=== PATIENT | female | born 1970 | race American Indian/Alaskan Native ===

== ENCOUNTER 2021-12-01 08:32 | Outpatient (CLI) | payer OTHER ==
[2021-12-01] MEDS ORDERED: LIDOCAINE (4%) 40 MG/ML TOPICAL SOLN 50 ML BOTTLE TP ONE (08:47)
== END 2021-12-01 08:33 | disposition home or self-care (01) ==
LOC: WOUND 08:32
PROVIDERS: ATTEND Surgery
DX: T81.31XA Disruption of external operation (surgical) wound, not elsewhere classified, initial encounter (principal); S21.002A Unspecified open wound of left breast, initial encounter; S21.001A Unspecified open wound of right breast, initial encounter; S21.209A Unspecified open wound of unspecified back wall of thorax without penetration into thoracic cavity, initial encounter; S31.103A Unspecified open wound of abdominal wall, right lower quadrant without penetration into peritoneal cavity, initial encounter; I10 Essential (primary) hypertension; F12.90 Cannabis use, unspecified, uncomplicated; Z98.890 Other specified postprocedural states; Z79.899 Other long term (current) drug therapy; X58.XXXA Exposure to other specified factors, initial encounter; Y83.8 Other surgical procedures as the cause of abnormal reaction of the patient, or of later complication, without mention of misadventure at the time of the procedure; Y92.238 Other place in hospital as the place of occurrence of the external cause; Y93.89 Activity, other specified; Y92.89 Other specified places as the place of occurrence of the external cause; Y99.8 Other external cause status
CPT/HCPCS: 11042; 11045; G0463; 99204

== ENCOUNTER 2021-12-08 08:51 | Outpatient (CLI) | payer OTHER ==
[2021-12-08] MEDS ORDERED: LIDOCAINE (4%) 40 MG/ML TOPICAL SOLN 50 ML BOTTLE TP ONE (08:55)
[2021-12-08] MEDS ORDERED: SILVER NITRATE APPLICATOR 1 EA TP ONE (10:06)
== END 2021-12-08 08:52 | disposition home or self-care (01) ==
LOC: WOUND 08:51
PROVIDERS: ATTEND Surgery
DX: T81.31XD Disruption of external operation (surgical) wound, not elsewhere classified, subsequent encounter (principal); S21.002D Unspecified open wound of left breast, subsequent encounter; S21.001D Unspecified open wound of right breast, subsequent encounter; S21.90XD Unspecified open wound of unspecified part of thorax, subsequent encounter; S31.103D Unspecified open wound of abdominal wall, right lower quadrant without penetration into peritoneal cavity, subsequent encounter; I10 Essential (primary) hypertension; F12.90 Cannabis use, unspecified, uncomplicated; Z98.890 Other specified postprocedural states; Z79.899 Other long term (current) drug therapy; X58.XXXD Exposure to other specified factors, subsequent encounter; Y83.8 Other surgical procedures as the cause of abnormal reaction of the patient, or of later complication, without mention of misadventure at the time of the procedure

== ENCOUNTER 2021-12-11 14:25 | Outpatient (CLI) | payer OTHER | END 2021-12-11 14:26 | disposition home or self-care (01) | LOC: WOUND 14:25 | PROVIDERS: ATTEND Surgery | DX: T81.31XD Disruption of external operation (surgical) wound, not elsewhere classified, subsequent encounter (principal); S21.002D Unspecified open wound of left breast, subsequent encounter; S21.001D Unspecified open wound of right breast, subsequent encounter; S21.90XD Unspecified open wound of unspecified part of thorax, subsequent encounter; S31.103D Unspecified open wound of abdominal wall, right lower quadrant without penetration into peritoneal cavity, subsequent encounter; I10 Essential (primary) hypertension; F12.90 Cannabis use, unspecified, uncomplicated; Z98.890 Other specified postprocedural states; Z79.899 Other long term (current) drug therapy; X58.XXXD Exposure to other specified factors, subsequent encounter; Y83.8 Other surgical procedures as the cause of abnormal reaction of the patient, or of later complication, without mention of misadventure at the time of the procedure | CPT/HCPCS: 99214; G0463 ==

== ENCOUNTER 2021-12-15 09:00 | Outpatient (CLI) | payer OTHER ==
[2021-12-15] MEDS ORDERED: LIDOCAINE (4%) 40 MG/ML TOPICAL SOLN 50 ML BOTTLE TP ONE (09:38)
== END 2021-12-15 09:01 | disposition home or self-care (01) ==
LOC: WOUND 09:00
PROVIDERS: ATTEND Surgery
DX: T81.31XD Disruption of external operation (surgical) wound, not elsewhere classified, subsequent encounter (principal); S21.002D Unspecified open wound of left breast, subsequent encounter; S21.001D Unspecified open wound of right breast, subsequent encounter; S21.90XD Unspecified open wound of unspecified part of thorax, subsequent encounter; S31.103D Unspecified open wound of abdominal wall, right lower quadrant without penetration into peritoneal cavity, subsequent encounter; I10 Essential (primary) hypertension; F12.90 Cannabis use, unspecified, uncomplicated; Z79.899 Other long term (current) drug therapy; Z98.890 Other specified postprocedural states; X58.XXXD Exposure to other specified factors, subsequent encounter; Y83.8 Other surgical procedures as the cause of abnormal reaction of the patient, or of later complication, without mention of misadventure at the time of the procedure

== ENCOUNTER 2021-12-15 13:11 | Outpatient (CLI) | payer OTHER ==
--- NOTE | 2021-12-15 13:48 | XRay Report ---
CHEST 2 VIEWS INDICATION: HBO CLEARANCE BREAST WOUND. COMPARISON: none FINDINGS: Support devices: None. Heart: Within normal limits. Lungs/pleura: No acute air space or interstitial disease. No pneumothorax. Additional findings: None. IMPRESSION: No acute findings. Signer Name: Sharath Mireles Jr, MD Signed: 12/15/2021 1:44 PM Workstation Name: [id number]
== END 2021-12-15 13:12 | disposition home or self-care (01) ==
LOC: XRAY 13:11
PROVIDERS: ATTEND Surgery
DX: S21.009A Unspecified open wound of unspecified breast, initial encounter (principal); X58.XXXA Exposure to other specified factors, initial encounter; Y93.89 Activity, other specified; Y92.89 Other specified places as the place of occurrence of the external cause; Y99.8 Other external cause status
CPT/HCPCS: 71046

== ENCOUNTER 2021-12-18 13:52 | Outpatient (CLI) | payer OTHER ==
[2021-12-18] MEDS ORDERED: SILVER NITRATE APPLICATOR 1 EA TP ONE (14:32)
[2021-12-18] MEDS ORDERED: LIDOCAINE (4%) 40 MG/ML TOPICAL SOLN 50 ML BOTTLE TP ONE (14:32)
== END 2021-12-18 13:53 | disposition home or self-care (01) ==
LOC: WOUND 13:52
PROVIDERS: ATTEND Surgery
DX: T86.828 Other complications of skin graft (allograft) (autograft) (principal); T81.31XD Disruption of external operation (surgical) wound, not elsewhere classified, subsequent encounter; S21.002D Unspecified open wound of left breast, subsequent encounter; S21.001D Unspecified open wound of right breast, subsequent encounter; S21.90XD Unspecified open wound of unspecified part of thorax, subsequent encounter; S31.103D Unspecified open wound of abdominal wall, right lower quadrant without penetration into peritoneal cavity, subsequent encounter; I10 Essential (primary) hypertension; F12.90 Cannabis use, unspecified, uncomplicated; Z79.899 Other long term (current) drug therapy; Z98.890 Other specified postprocedural states; X58.XXXD Exposure to other specified factors, subsequent encounter; Y83.8 Other surgical procedures as the cause of abnormal reaction of the patient, or of later complication, without mention of misadventure at the time of the procedure; Y83.2 Surgical operation with anastomosis, bypass or graft as the cause of abnormal reaction of the patient, or of later complication, without mention of misadventure at the time of the procedure

== ENCOUNTER 2021-12-22 08:42 | Outpatient (CLI) | payer OTHER | END 2021-12-22 08:43 | disposition home or self-care (01) | LOC: WOUND 08:42 | PROVIDERS: ATTEND Surgery | DX: T86.828 Other complications of skin graft (allograft) (autograft) (principal); T81.31XD Disruption of external operation (surgical) wound, not elsewhere classified, subsequent encounter; S21.002D Unspecified open wound of left breast, subsequent encounter; S21.001D Unspecified open wound of right breast, subsequent encounter; S21.90XD Unspecified open wound of unspecified part of thorax, subsequent encounter; S31.103D Unspecified open wound of abdominal wall, right lower quadrant without penetration into peritoneal cavity, subsequent encounter; I10 Essential (primary) hypertension; F12.90 Cannabis use, unspecified, uncomplicated; Z79.899 Other long term (current) drug therapy; Z98.890 Other specified postprocedural states; X58.XXXD Exposure to other specified factors, subsequent encounter; Y83.8 Other surgical procedures as the cause of abnormal reaction of the patient, or of later complication, without mention of misadventure at the time of the procedure; Y83.2 Surgical operation with anastomosis, bypass or graft as the cause of abnormal reaction of the patient, or of later complication, without mention of misadventure at the time of the procedure | CPT/HCPCS: 99214; G0463 ==

== ENCOUNTER 2021-12-29 08:31 | Outpatient (CLI) | payer OTHER ==
[2021-12-29] MEDS ORDERED: LIDOCAINE (4%) 40 MG/ML TOPICAL SOLN 50 ML BOTTLE TP SCH (09:00)
== END 2021-12-29 08:32 | disposition home or self-care (01) ==
LOC: WOUND 08:31
PROVIDERS: ATTEND Surgery
DX: T86.828 Other complications of skin graft (allograft) (autograft) (principal); T81.31XD Disruption of external operation (surgical) wound, not elsewhere classified, subsequent encounter; S21.002D Unspecified open wound of left breast, subsequent encounter; S21.001D Unspecified open wound of right breast, subsequent encounter; S21.90XD Unspecified open wound of unspecified part of thorax, subsequent encounter; S31.103D Unspecified open wound of abdominal wall, right lower quadrant without penetration into peritoneal cavity, subsequent encounter; I10 Essential (primary) hypertension; F12.90 Cannabis use, unspecified, uncomplicated; Z79.899 Other long term (current) drug therapy; Z98.890 Other specified postprocedural states; X58.XXXD Exposure to other specified factors, subsequent encounter; Y83.8 Other surgical procedures as the cause of abnormal reaction of the patient, or of later complication, without mention of misadventure at the time of the procedure; Y83.2 Surgical operation with anastomosis, bypass or graft as the cause of abnormal reaction of the patient, or of later complication, without mention of misadventure at the time of the procedure

== ENCOUNTER 2022-01-01 08:54 | Outpatient (CLI) | payer OTHER | END 2022-01-01 08:55 | disposition home or self-care (01) | LOC: WOUND 08:54 | PROVIDERS: ATTEND Surgery | DX: T86.828 Other complications of skin graft (allograft) (autograft) (principal); T81.31XD Disruption of external operation (surgical) wound, not elsewhere classified, subsequent encounter; S21.002D Unspecified open wound of left breast, subsequent encounter; S21.001D Unspecified open wound of right breast, subsequent encounter; S21.90XD Unspecified open wound of unspecified part of thorax, subsequent encounter; S31.103D Unspecified open wound of abdominal wall, right lower quadrant without penetration into peritoneal cavity, subsequent encounter; I10 Essential (primary) hypertension; F12.90 Cannabis use, unspecified, uncomplicated; Z79.899 Other long term (current) drug therapy; Z98.890 Other specified postprocedural states; X58.XXXD Exposure to other specified factors, subsequent encounter; Y83.8 Other surgical procedures as the cause of abnormal reaction of the patient, or of later complication, without mention of misadventure at the time of the procedure; Y83.2 Surgical operation with anastomosis, bypass or graft as the cause of abnormal reaction of the patient, or of later complication, without mention of misadventure at the time of the procedure | CPT/HCPCS: 97605; G0277; G0463; 99183; 99213 ==

== ENCOUNTER 2022-01-03 09:07 | Outpatient (CLI) | payer OTHER | END 2022-01-03 09:08 | disposition home or self-care (01) | LOC: WOUND 09:07 | PROVIDERS: ATTEND Surgery | DX: T86.828 Other complications of skin graft (allograft) (autograft) (principal); T81.31XD Disruption of external operation (surgical) wound, not elsewhere classified, subsequent encounter; S21.002D Unspecified open wound of left breast, subsequent encounter; S21.001D Unspecified open wound of right breast, subsequent encounter; S21.90XD Unspecified open wound of unspecified part of thorax, subsequent encounter; S31.103D Unspecified open wound of abdominal wall, right lower quadrant without penetration into peritoneal cavity, subsequent encounter; I10 Essential (primary) hypertension; F12.90 Cannabis use, unspecified, uncomplicated; Z79.899 Other long term (current) drug therapy; Z98.890 Other specified postprocedural states; X58.XXXD Exposure to other specified factors, subsequent encounter; Y83.8 Other surgical procedures as the cause of abnormal reaction of the patient, or of later complication, without mention of misadventure at the time of the procedure; Y83.2 Surgical operation with anastomosis, bypass or graft as the cause of abnormal reaction of the patient, or of later complication, without mention of misadventure at the time of the procedure | CPT/HCPCS: 97605; G0277; G0463; 99183; 99214 ==

== ENCOUNTER 2022-01-04 09:04 | Outpatient (CLI) | payer OTHER | END 2022-01-04 09:05 | disposition home or self-care (01) | LOC: WOUND 09:04 | PROVIDERS: ATTEND Internal Medicine | DX: T86.828 Other complications of skin graft (allograft) (autograft) (principal); T81.31XD Disruption of external operation (surgical) wound, not elsewhere classified, subsequent encounter; S21.002D Unspecified open wound of left breast, subsequent encounter; S21.001D Unspecified open wound of right breast, subsequent encounter; S21.90XD Unspecified open wound of unspecified part of thorax, subsequent encounter; S31.103D Unspecified open wound of abdominal wall, right lower quadrant without penetration into peritoneal cavity, subsequent encounter; I10 Essential (primary) hypertension; F12.90 Cannabis use, unspecified, uncomplicated; Z79.899 Other long term (current) drug therapy; Z98.890 Other specified postprocedural states; X58.XXXD Exposure to other specified factors, subsequent encounter; Y83.8 Other surgical procedures as the cause of abnormal reaction of the patient, or of later complication, without mention of misadventure at the time of the procedure; Y83.2 Surgical operation with anastomosis, bypass or graft as the cause of abnormal reaction of the patient, or of later complication, without mention of misadventure at the time of the procedure | CPT/HCPCS: 99183; G0277 ==

== ENCOUNTER 2022-01-05 09:07 | Outpatient (CLI) | payer OTHER ==
[2022-01-05] MEDS ORDERED: LIDOCAINE (4%) 40 MG/ML TOPICAL SOLN 50 ML BOTTLE TP ONE (09:17)
== END 2022-01-05 09:08 | disposition home or self-care (01) ==
LOC: WOUND 09:07
PROVIDERS: ATTEND Surgery
DX: T86.828 Other complications of skin graft (allograft) (autograft) (principal); T81.31XD Disruption of external operation (surgical) wound, not elsewhere classified, subsequent encounter; S21.002D Unspecified open wound of left breast, subsequent encounter; S21.001D Unspecified open wound of right breast, subsequent encounter; S21.90XD Unspecified open wound of unspecified part of thorax, subsequent encounter; S31.103D Unspecified open wound of abdominal wall, right lower quadrant without penetration into peritoneal cavity, subsequent encounter; I10 Essential (primary) hypertension; F12.90 Cannabis use, unspecified, uncomplicated; Z79.899 Other long term (current) drug therapy; Z98.890 Other specified postprocedural states; X58.XXXD Exposure to other specified factors, subsequent encounter; Y83.8 Other surgical procedures as the cause of abnormal reaction of the patient, or of later complication, without mention of misadventure at the time of the procedure; Y83.2 Surgical operation with anastomosis, bypass or graft as the cause of abnormal reaction of the patient, or of later complication, without mention of misadventure at the time of the procedure
CPT/HCPCS: 11042; 11045; 97605; G0277; G0463; 99183; 99214

== ENCOUNTER 2022-01-08 08:59 | Outpatient (CLI) | payer OTHER | END 2022-01-08 09:00 | disposition home or self-care (01) | LOC: WOUND 08:59 | PROVIDERS: ATTEND Surgery | DX: T86.828 Other complications of skin graft (allograft) (autograft) (principal); T81.31XD Disruption of external operation (surgical) wound, not elsewhere classified, subsequent encounter; S21.002D Unspecified open wound of left breast, subsequent encounter; S21.001D Unspecified open wound of right breast, subsequent encounter; S21.90XD Unspecified open wound of unspecified part of thorax, subsequent encounter; S31.103D Unspecified open wound of abdominal wall, right lower quadrant without penetration into peritoneal cavity, subsequent encounter; I10 Essential (primary) hypertension; F12.90 Cannabis use, unspecified, uncomplicated; Z79.899 Other long term (current) drug therapy; Z98.890 Other specified postprocedural states; X58.XXXD Exposure to other specified factors, subsequent encounter; Y83.8 Other surgical procedures as the cause of abnormal reaction of the patient, or of later complication, without mention of misadventure at the time of the procedure; Y83.2 Surgical operation with anastomosis, bypass or graft as the cause of abnormal reaction of the patient, or of later complication, without mention of misadventure at the time of the procedure | CPT/HCPCS: 97605; G0277; G0463; 99183; 99214 ==

== ENCOUNTER 2022-01-10 09:00 | Outpatient (CLI) | payer OTHER | END 2022-01-10 09:01 | disposition home or self-care (01) | LOC: WOUND 09:00 | PROVIDERS: ATTEND Surgery | DX: T86.828 Other complications of skin graft (allograft) (autograft) (principal); T81.31XD Disruption of external operation (surgical) wound, not elsewhere classified, subsequent encounter; S21.002D Unspecified open wound of left breast, subsequent encounter; S21.001D Unspecified open wound of right breast, subsequent encounter; S21.90XD Unspecified open wound of unspecified part of thorax, subsequent encounter; S31.103D Unspecified open wound of abdominal wall, right lower quadrant without penetration into peritoneal cavity, subsequent encounter; I10 Essential (primary) hypertension; F17.290 Nicotine dependence, other tobacco product, uncomplicated; Z79.899 Other long term (current) drug therapy; Z98.890 Other specified postprocedural states; X58.XXXD Exposure to other specified factors, subsequent encounter; Y83.8 Other surgical procedures as the cause of abnormal reaction of the patient, or of later complication, without mention of misadventure at the time of the procedure; Y83.2 Surgical operation with anastomosis, bypass or graft as the cause of abnormal reaction of the patient, or of later complication, without mention of misadventure at the time of the procedure | CPT/HCPCS: 97605; G0277; G0463; 99183; 99214 ==

== ENCOUNTER 2022-01-12 09:00 | Outpatient (CLI) | payer OTHER ==
[2022-01-12] MEDS ORDERED: LIDOCAINE (4%) 40 MG/ML TOPICAL SOLN 50 ML BOTTLE TP ONE (09:09)
== END 2022-01-12 09:01 | disposition home or self-care (01) ==
LOC: WOUND 09:00
PROVIDERS: ATTEND Surgery
DX: T86.828 Other complications of skin graft (allograft) (autograft) (principal); T81.31XD Disruption of external operation (surgical) wound, not elsewhere classified, subsequent encounter; S21.002D Unspecified open wound of left breast, subsequent encounter; S21.001D Unspecified open wound of right breast, subsequent encounter; S21.90XD Unspecified open wound of unspecified part of thorax, subsequent encounter; S31.103D Unspecified open wound of abdominal wall, right lower quadrant without penetration into peritoneal cavity, subsequent encounter; I10 Essential (primary) hypertension; F12.90 Cannabis use, unspecified, uncomplicated; Z79.899 Other long term (current) drug therapy; Z98.890 Other specified postprocedural states; X58.XXXD Exposure to other specified factors, subsequent encounter; Y83.8 Other surgical procedures as the cause of abnormal reaction of the patient, or of later complication, without mention of misadventure at the time of the procedure; Y83.2 Surgical operation with anastomosis, bypass or graft as the cause of abnormal reaction of the patient, or of later complication, without mention of misadventure at the time of the procedure
CPT/HCPCS: 11042; 11045; 97605; G0277; 99183

== ENCOUNTER 2022-01-15 09:03 | Outpatient (CLI) | payer OTHER | END 2022-01-15 09:04 | disposition home or self-care (01) | LOC: WOUND 09:03 | PROVIDERS: ATTEND Surgery | DX: T86.828 Other complications of skin graft (allograft) (autograft) (principal); T81.31XD Disruption of external operation (surgical) wound, not elsewhere classified, subsequent encounter; S21.002D Unspecified open wound of left breast, subsequent encounter; S21.001D Unspecified open wound of right breast, subsequent encounter; S21.90XD Unspecified open wound of unspecified part of thorax, subsequent encounter; S31.103D Unspecified open wound of abdominal wall, right lower quadrant without penetration into peritoneal cavity, subsequent encounter; I10 Essential (primary) hypertension; F12.90 Cannabis use, unspecified, uncomplicated; Z79.899 Other long term (current) drug therapy; Z98.890 Other specified postprocedural states; X58.XXXD Exposure to other specified factors, subsequent encounter; Y83.8 Other surgical procedures as the cause of abnormal reaction of the patient, or of later complication, without mention of misadventure at the time of the procedure; Y83.2 Surgical operation with anastomosis, bypass or graft as the cause of abnormal reaction of the patient, or of later complication, without mention of misadventure at the time of the procedure | CPT/HCPCS: 97605; G0277; G0463; 99183; 99214 ==

== ENCOUNTER 2022-01-17 09:04 | Outpatient (CLI) | payer OTHER | END 2022-01-17 09:05 | disposition home or self-care (01) | LOC: WOUND 09:04 | PROVIDERS: ATTEND Surgery | DX: T86.828 Other complications of skin graft (allograft) (autograft) (principal); T81.31XD Disruption of external operation (surgical) wound, not elsewhere classified, subsequent encounter; S21.002D Unspecified open wound of left breast, subsequent encounter; S21.001D Unspecified open wound of right breast, subsequent encounter; S21.90XD Unspecified open wound of unspecified part of thorax, subsequent encounter; S31.103D Unspecified open wound of abdominal wall, right lower quadrant without penetration into peritoneal cavity, subsequent encounter; I10 Essential (primary) hypertension; F12.90 Cannabis use, unspecified, uncomplicated; Z79.899 Other long term (current) drug therapy; Z98.890 Other specified postprocedural states; X58.XXXD Exposure to other specified factors, subsequent encounter; Y83.8 Other surgical procedures as the cause of abnormal reaction of the patient, or of later complication, without mention of misadventure at the time of the procedure; Y83.2 Surgical operation with anastomosis, bypass or graft as the cause of abnormal reaction of the patient, or of later complication, without mention of misadventure at the time of the procedure | CPT/HCPCS: 97605; G0277; G0463; 97606; 99183; 99214 ==

== ENCOUNTER 2022-01-18 14:59 | Outpatient (CLI) | payer OTHER | END 2022-01-18 15:00 | disposition home or self-care (01) | LOC: WOUND 14:59 | PROVIDERS: ATTEND Internal Medicine | DX: T86.828 Other complications of skin graft (allograft) (autograft) (principal); T81.31XD Disruption of external operation (surgical) wound, not elsewhere classified, subsequent encounter; S21.002D Unspecified open wound of left breast, subsequent encounter; S21.001D Unspecified open wound of right breast, subsequent encounter; S21.90XD Unspecified open wound of unspecified part of thorax, subsequent encounter; S31.103D Unspecified open wound of abdominal wall, right lower quadrant without penetration into peritoneal cavity, subsequent encounter; I10 Essential (primary) hypertension; F12.90 Cannabis use, unspecified, uncomplicated; Z79.899 Other long term (current) drug therapy; Z98.890 Other specified postprocedural states; X58.XXXD Exposure to other specified factors, subsequent encounter; Y83.8 Other surgical procedures as the cause of abnormal reaction of the patient, or of later complication, without mention of misadventure at the time of the procedure; Y83.2 Surgical operation with anastomosis, bypass or graft as the cause of abnormal reaction of the patient, or of later complication, without mention of misadventure at the time of the procedure | CPT/HCPCS: 99183; G0277 ==

== ENCOUNTER 2022-01-19 09:11 | Outpatient (CLI) | payer OTHER ==
[2022-01-19] MEDS ORDERED: LIDOCAINE (4%) 40 MG/ML TOPICAL SOLN 50 ML BOTTLE TP ONE (09:37)
== END 2022-01-19 09:12 | disposition home or self-care (01) ==
LOC: WOUND 09:11
PROVIDERS: ATTEND Surgery
DX: T86.828 Other complications of skin graft (allograft) (autograft) (principal); T81.31XD Disruption of external operation (surgical) wound, not elsewhere classified, subsequent encounter; S21.002D Unspecified open wound of left breast, subsequent encounter; S21.001D Unspecified open wound of right breast, subsequent encounter; S21.90XD Unspecified open wound of unspecified part of thorax, subsequent encounter; S31.103D Unspecified open wound of abdominal wall, right lower quadrant without penetration into peritoneal cavity, subsequent encounter; I10 Essential (primary) hypertension; F12.90 Cannabis use, unspecified, uncomplicated; Z79.899 Other long term (current) drug therapy; Z98.890 Other specified postprocedural states; X58.XXXD Exposure to other specified factors, subsequent encounter; Y83.8 Other surgical procedures as the cause of abnormal reaction of the patient, or of later complication, without mention of misadventure at the time of the procedure; Y83.2 Surgical operation with anastomosis, bypass or graft as the cause of abnormal reaction of the patient, or of later complication, without mention of misadventure at the time of the procedure
CPT/HCPCS: 15271; 97605

== ENCOUNTER 2022-01-26 08:53 | Outpatient (CLI) | payer OTHER ==
[2022-01-26] MEDS ORDERED: LIDOCAINE (4%) 40 MG/ML TOPICAL SOLN 50 ML BOTTLE TP SCH (11:00)
== END 2022-01-26 08:54 | disposition home or self-care (01) ==
LOC: WOUND 08:53
PROVIDERS: ATTEND Surgery
DX: T86.828 Other complications of skin graft (allograft) (autograft) (principal); T81.31XD Disruption of external operation (surgical) wound, not elsewhere classified, subsequent encounter; S21.002D Unspecified open wound of left breast, subsequent encounter; S21.001D Unspecified open wound of right breast, subsequent encounter; S21.90XD Unspecified open wound of unspecified part of thorax, subsequent encounter; S31.103D Unspecified open wound of abdominal wall, right lower quadrant without penetration into peritoneal cavity, subsequent encounter; I10 Essential (primary) hypertension; F12.90 Cannabis use, unspecified, uncomplicated; Z79.899 Other long term (current) drug therapy; Z98.890 Other specified postprocedural states; X58.XXXD Exposure to other specified factors, subsequent encounter; Y83.8 Other surgical procedures as the cause of abnormal reaction of the patient, or of later complication, without mention of misadventure at the time of the procedure; Y83.2 Surgical operation with anastomosis, bypass or graft as the cause of abnormal reaction of the patient, or of later complication, without mention of misadventure at the time of the procedure
CPT/HCPCS: 15271

== ENCOUNTER 2022-01-29 16:08 | Outpatient (CLI) | payer OTHER | END 2022-01-29 16:09 | disposition home or self-care (01) | LOC: WOUND 16:08 | PROVIDERS: ATTEND Surgery | DX: T86.828 Other complications of skin graft (allograft) (autograft) (principal); T81.31XD Disruption of external operation (surgical) wound, not elsewhere classified, subsequent encounter; S21.002D Unspecified open wound of left breast, subsequent encounter; S21.001D Unspecified open wound of right breast, subsequent encounter; S21.90XD Unspecified open wound of unspecified part of thorax, subsequent encounter; S31.103D Unspecified open wound of abdominal wall, right lower quadrant without penetration into peritoneal cavity, subsequent encounter; I10 Essential (primary) hypertension; F12.90 Cannabis use, unspecified, uncomplicated; Z79.899 Other long term (current) drug therapy; Z98.890 Other specified postprocedural states; X58.XXXD Exposure to other specified factors, subsequent encounter; Y83.8 Other surgical procedures as the cause of abnormal reaction of the patient, or of later complication, without mention of misadventure at the time of the procedure; Y83.2 Surgical operation with anastomosis, bypass or graft as the cause of abnormal reaction of the patient, or of later complication, without mention of misadventure at the time of the procedure | CPT/HCPCS: 99183; G0277 ==

== ENCOUNTER 2022-02-01 09:00 | Outpatient (CLI) | payer OTHER | END 2022-02-01 16:30 | disposition home or self-care (01) | LOC: WOUND 09:00 | PROVIDERS: ATTEND Internal Medicine | DX: T86.828 Other complications of skin graft (allograft) (autograft) (principal); T81.31XD Disruption of external operation (surgical) wound, not elsewhere classified, subsequent encounter; S21.001D Unspecified open wound of right breast, subsequent encounter; S21.002D Unspecified open wound of left breast, subsequent encounter; S21.90XD Unspecified open wound of unspecified part of thorax, subsequent encounter; S31.103D Unspecified open wound of abdominal wall, right lower quadrant without penetration into peritoneal cavity, subsequent encounter; I10 Essential (primary) hypertension; F12.90 Cannabis use, unspecified, uncomplicated; Z79.899 Other long term (current) drug therapy; Z98.890 Other specified postprocedural states; X58.XXXD Exposure to other specified factors, subsequent encounter; Y83.8 Other surgical procedures as the cause of abnormal reaction of the patient, or of later complication, without mention of misadventure at the time of the procedure; Y83.2 Surgical operation with anastomosis, bypass or graft as the cause of abnormal reaction of the patient, or of later complication, without mention of misadventure at the time of the procedure | CPT/HCPCS: 99183; G0277 ==

== ENCOUNTER 2022-02-02 15:50 | Outpatient (CLI) | payer OTHER | END 2022-02-02 15:51 | disposition home or self-care (01) | LOC: WOUND 15:50 | PROVIDERS: ATTEND Surgery | DX: T86.828 Other complications of skin graft (allograft) (autograft) (principal); T81.31XD Disruption of external operation (surgical) wound, not elsewhere classified, subsequent encounter; S21.002D Unspecified open wound of left breast, subsequent encounter; S21.001D Unspecified open wound of right breast, subsequent encounter; S21.90XD Unspecified open wound of unspecified part of thorax, subsequent encounter; S31.103D Unspecified open wound of abdominal wall, right lower quadrant without penetration into peritoneal cavity, subsequent encounter; I10 Essential (primary) hypertension; F12.90 Cannabis use, unspecified, uncomplicated; Z79.899 Other long term (current) drug therapy; Z98.890 Other specified postprocedural states; X58.XXXD Exposure to other specified factors, subsequent encounter; Y83.8 Other surgical procedures as the cause of abnormal reaction of the patient, or of later complication, without mention of misadventure at the time of the procedure; Y83.2 Surgical operation with anastomosis, bypass or graft as the cause of abnormal reaction of the patient, or of later complication, without mention of misadventure at the time of the procedure | CPT/HCPCS: 15271 ==

== ENCOUNTER 2022-02-06 15:43 | Outpatient (CLI) | payer OTHER | END 2022-02-06 15:44 | disposition home or self-care (01) | LOC: WOUND 15:43 | PROVIDERS: ATTEND Internal Medicine | DX: T86.828 Other complications of skin graft (allograft) (autograft) (principal); T81.31XD Disruption of external operation (surgical) wound, not elsewhere classified, subsequent encounter; S21.002D Unspecified open wound of left breast, subsequent encounter; S21.001D Unspecified open wound of right breast, subsequent encounter; S21.90XD Unspecified open wound of unspecified part of thorax, subsequent encounter; S31.103D Unspecified open wound of abdominal wall, right lower quadrant without penetration into peritoneal cavity, subsequent encounter; I10 Essential (primary) hypertension; F12.90 Cannabis use, unspecified, uncomplicated; Z79.899 Other long term (current) drug therapy; Z98.890 Other specified postprocedural states; X58.XXXD Exposure to other specified factors, subsequent encounter; Y83.8 Other surgical procedures as the cause of abnormal reaction of the patient, or of later complication, without mention of misadventure at the time of the procedure; Y83.2 Surgical operation with anastomosis, bypass or graft as the cause of abnormal reaction of the patient, or of later complication, without mention of misadventure at the time of the procedure | CPT/HCPCS: 99183; G0277 ==

== ENCOUNTER 2022-02-09 11:16 | Outpatient (CLI) | payer OTHER ==
[2022-02-09] MEDS ORDERED: LIDOCAINE (4%) 40 MG/ML TOPICAL SOLN 50 ML BOTTLE TP SCH (15:00)
== END 2022-02-09 11:17 | disposition home or self-care (01) ==
LOC: WOUND 11:16
PROVIDERS: ATTEND Surgery
DX: T86.828 Other complications of skin graft (allograft) (autograft) (principal); T81.31XD Disruption of external operation (surgical) wound, not elsewhere classified, subsequent encounter; S21.002D Unspecified open wound of left breast, subsequent encounter; S21.001D Unspecified open wound of right breast, subsequent encounter; S21.90XD Unspecified open wound of unspecified part of thorax, subsequent encounter; S31.103D Unspecified open wound of abdominal wall, right lower quadrant without penetration into peritoneal cavity, subsequent encounter; I10 Essential (primary) hypertension; F12.90 Cannabis use, unspecified, uncomplicated; Z79.899 Other long term (current) drug therapy; Z98.890 Other specified postprocedural states; X58.XXXD Exposure to other specified factors, subsequent encounter; Y83.8 Other surgical procedures as the cause of abnormal reaction of the patient, or of later complication, without mention of misadventure at the time of the procedure; Y83.2 Surgical operation with anastomosis, bypass or graft as the cause of abnormal reaction of the patient, or of later complication, without mention of misadventure at the time of the procedure
CPT/HCPCS: 15271; G0277; 99183

== ENCOUNTER 2022-02-16 09:41 | Outpatient (CLI) | payer OTHER ==
[2022-02-16] MEDS ORDERED: LIDOCAINE (4%) 40 MG/ML TOPICAL SOLN 50 ML BOTTLE TP SCH (09:49)
[2022-02-16] MEDS ORDERED: SILVER NITRATE APPLICATOR 1 EA TP ONE (10:13)
== END 2022-02-16 09:42 | disposition home or self-care (01) ==
LOC: WOUND 09:41
PROVIDERS: ATTEND Surgery
DX: T86.828 Other complications of skin graft (allograft) (autograft) (principal); T81.31XD Disruption of external operation (surgical) wound, not elsewhere classified, subsequent encounter; S21.002D Unspecified open wound of left breast, subsequent encounter; S21.001D Unspecified open wound of right breast, subsequent encounter; S21.90XD Unspecified open wound of unspecified part of thorax, subsequent encounter; S31.103D Unspecified open wound of abdominal wall, right lower quadrant without penetration into peritoneal cavity, subsequent encounter; I10 Essential (primary) hypertension; F12.90 Cannabis use, unspecified, uncomplicated; Z79.899 Other long term (current) drug therapy; Z98.890 Other specified postprocedural states; X58.XXXD Exposure to other specified factors, subsequent encounter; Y83.8 Other surgical procedures as the cause of abnormal reaction of the patient, or of later complication, without mention of misadventure at the time of the procedure; Y83.2 Surgical operation with anastomosis, bypass or graft as the cause of abnormal reaction of the patient, or of later complication, without mention of misadventure at the time of the procedure
CPT/HCPCS: 15271; 97602

== ENCOUNTER 2022-03-09 09:49 | Outpatient (CLI) | payer OTHER | END 2022-03-09 09:50 | disposition home or self-care (01) | LOC: WOUND 09:49 | PROVIDERS: ATTEND Surgery | DX: T86.828 Other complications of skin graft (allograft) (autograft) (principal); T81.31XD Disruption of external operation (surgical) wound, not elsewhere classified, subsequent encounter; S21.002D Unspecified open wound of left breast, subsequent encounter; S21.001D Unspecified open wound of right breast, subsequent encounter; S21.90XD Unspecified open wound of unspecified part of thorax, subsequent encounter; S31.103D Unspecified open wound of abdominal wall, right lower quadrant without penetration into peritoneal cavity, subsequent encounter; I10 Essential (primary) hypertension; F12.90 Cannabis use, unspecified, uncomplicated; Z79.899 Other long term (current) drug therapy; Z98.890 Other specified postprocedural states; X58.XXXD Exposure to other specified factors, subsequent encounter; Y83.8 Other surgical procedures as the cause of abnormal reaction of the patient, or of later complication, without mention of misadventure at the time of the procedure; Y83.2 Surgical operation with anastomosis, bypass or graft as the cause of abnormal reaction of the patient, or of later complication, without mention of misadventure at the time of the procedure | CPT/HCPCS: 99213; G0463 ==